=== PATIENT | male | born 1940 | race Caucasian/White ===

== ENCOUNTER 2017-07-28 14:47 | Observation (INO) | payer MEDICARE, BC ==
[2017-07-28] VITALS (9 sets, daily range): BP systolic 120–158; BP diastolic 69–89; PULSE 62–75; RESP 18–22; TEMP 97.6–98.4; O2SAT 91–96
[2017-07-28] MEDS ORDERED: buPROPion HCL 150 MG SUSTAINED RELEASE TAB PO ONE (17:00)
[2017-07-28] MEDS ORDERED: SODIUM BICARBONATE 8.4% INJ 100 MEQ in DEXTROSE 5% IN WATE 1000ML INJ 1,000 ML IV SCH ×2 (20:00)
--- NOTE | 2017-07-28 20:14 | HHI.HP ---
History of Present Illness Chief Complaint: L neck mass, pulsatile; renal insufficiency History of Present Illness 77 y.o., , male~with a chief complaint of bulging left neck mass. This been present for years. In 2006, the patient had a left carotid endarterectomy for what sounds like asymptomatic carotid stenosis. He did well from this and was discharged to home on postoperative day #1. He then had an incident where he fell approximate 5 days later but reportedly was evaluated and found to have no adverse sequelae. He has noted a left neck mass for some time and this neck mass does not seem to grow nor does it give him any compressive symptoms nor symptoms of dysphagia. He denies fevers or chills and has no skin changes of his left neck. He is admitted today for IV hydration in preparation for a CT scan. This was the suggestion of his lead mechanic. The creatinine is pending. The patient has no new neck symptoms since I saw him in clinic. No stroke, TIA/ AF symptoms. Past/Family/Social History Past Medical History AAA (abdominal aortic aneurysm) Chronic cough Chronic kidney disease Depressed Fatigue Hyperlipidemia Hypertension Lung disease SOB (shortness of breath) Past Surgical History back surgery L CEA 2011 Social History + tobacco history Family History NC Coded Allergies: levofloxacin (Verified Allergy, Unknown, 07/28/17) Review of Systems Constitutional: DENIES: Fever, Chills Eyes: DENIES: Vision loss Physical Exam Vitals/I&O Date Time Temp Pulse Resp B/P (MAP) Pulse Ox O2 Delivery O2 Flow Rate FiO2 07/28/17 18:00 66 07/28/17 17:00 64 07/28/17 16:30 62 07/28/17 15:37 97.6 65 18 139/86 (103) 96 Neuro: alert, oriented, no focal deficits HEENT: NC/AT; anicteric sclera Neck: L neck with healed incision and pulsatile nontender mass no skin changes Heart: reg rate Lungs: nonlabored Extremities: TRIANA, no deficits pending pending Caprini VTE Risk Assessment Caprini VTE Risk Assessment: No/Low Risk (score <= 1) Caprini Risk Assessment Model Point Value = 1 Point Value = 2 Point Value = 3 Point Value = 5 Age 41-60 Minor surgery BMI > 25 kg/m2 Swollen legs Varicose veins or History of unexplained or recurrent spontaneous Oral contraceptives or hormone replacement Sepsis (< 1 month) Serious lung disease, including pneumonia (< 1 month) Abnormal pulmonary function Acute myocardial infarction Congestive heart failure (< 1 month) History of inflammatory bowel disease Medical patient at bed rest Age 61-74 Arthroscopic surgery Major open surgery (> 45 min) Laparoscopic surgery (> 45 min) Malignancy Confined to bed (> 72 hours) Immobilizing plaster cast Central venous access Age >= 75 History of VTE Family history of VTE Factor V Leiden Prothrombin [id number] Lupus anticoagulant Anticardiolipin antibodies Elevated serum homocysteine Heparin-induced thrombocytopenia Other congenital or acquired thrombophilia Stroke (< 1 month) Elective arthroplasty Hip, pelvis, or leg fracture Acute spinal cord injury (< 1 month) Prophylaxis Regimen Total Risk Factor Score Risk Level Prophylaxis Regimen 0-1 Low Early ambulation 2 Moderate Order ONE of the following: *Sequential Compression Device (SCD) *Heparin 5000 units SQ BID 3-4 Higher Order ONE of the following medications: *Heparin 5000 units SQ TID *Enoxaparin/Lovenox 40 mg SQ daily (WT < 150 kg, CrCl > 30 mL/min) *Enoxaparin/Lovenox 30 mg SQ daily (WT < 150 kg, CrCl > 10-29 mL/min) *Enoxaparin/Lovenox 30 mg SQ BID (WT < 150 kg, CrCl > 30 mL/min) AND/OR *Sequential Compression Device (SCD) 5 or more Highest Order ONE of the following medications: *Heparin 5000 units SQ TID (Preferred with Epidurals) *Enoxaparin/Lovenox 40 mg SQ daily (WT < 150 kg, CrCl > 30 mL/min) *Enoxaparin/Lovenox 30 mg SQ daily (WT < 150 kg, CrCl > 10-29 mL/min) *Enoxaparin/Lovenox 30 mg SQ BID (WT < 150 kg, CrCl > 30 mL/min) AND *Sequential Compression Device (SCD) Assessment and Plan Plan Potential L carotid pseudoaneurysm, 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 Also has renal insufficiency and is admitted for IV hydration in preparation for CTA neck tomorrow at the request of his lead mechanic Discharge Planning tomorrow after CTA. Toni Siegel MD Jul 28, 2017 20:14
[2017-07-28] MEDS: HEPARIN SODIUM - SQ 10,000 UNITS/ML VIAL SQ SCH (20:46)
[2017-07-28] MEDS ORDERED: ATORVASTATIN 80 MG TAB PO SCH (21:00)
[2017-07-28] MEDS ORDERED: PRAZOSIN HCL 5 MG CAP PO SCH (21:00)
[2017-07-28 21:12] LABS: BICARBONATE 28.6 MEQ/L (21.0-32.0); CALCIUM 8.5 MG/DL (8.5-10.1); CREATININE 1.7 MG/DL (0.60-1.30)
[2017-07-29] VITALS (8 sets, daily range): BP systolic 145–156; BP diastolic 80–97; PULSE 60–76; RESP 20–22; TEMP 98.1–98.4; O2SAT 94
[2017-07-29] MEDS: HEPARIN SODIUM - SQ 10,000 UNITS/ML VIAL SQ SCH (03:25)
[2017-07-29] MEDS ORDERED: IODIXANOL 320 MG/ML 10 ML VIAL (for Rad CT) IVCONTRAST ONE (05:30)
--- NOTE | 2017-07-29 06:03 | RADRPT ---
EXAM DATE/TIME: 07/29/2017 05:28 This report includes an Addendum and supersedes previous reports for this exam. [facility] COMPARISON: No previous studies available for comparison. INDICATIONS : Bulging left neck mass, evaluate for pseudoaneursym. IV CONTRAST: 50 cc Visipaque (iodixanol) IV RADIATION DOSE: 28.03 CTDIvol (mGy) MEDICAL HISTORY : Hypertension. Aneurysm, abdominal. SURGICAL HISTORY : Left carotid endarterectomy. ENCOUNTER: Initial ACUITY: 1 month PAIN SCALE: 0/10 LOCATION: Left neck Elevated flow velocities and ICA/CCA ratios have been found to correlate with increased degrees of vessel stenosis, calculated as percentage of diameter relative to a normal segment of distal ICA/CCA. TECHNIQUE: Volumetric scanning was performed using a multirow detector CT scanner. The data was post processed with a variety of visualization algorithms including full-volume maximum intensity projection, multip lanar sliding thin-slab reformation, curved-planar reformation, and surface-rendering techniques. Us ing automated exposure control and adjustment of the mA and/or kV according to patient size, radiatio n dose was kept as low as reasonably achievable to obtain optimal diagnostic quality images. DICOM f ormat image data is available electronically for review and comparison. 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 There is 3 vessel arch anatomy. Ostium of th e arch vessels are patent. RIGHT CAROTID: Scattered calcified plaque throughout the common carotid artery without significant flow-limiting jhony nosis. The carotid bulb has a normal configuration without ulceration or narrowing. Calcified plaque in the proximal internal carotid artery with resultant approximate 40% stenosis. Internal carotid art danette is otherwise patent to the skull base. The external carotid artery is intact. LEFT CAROTID: The common carotid artery is intact. Postsurgical features of carotid endarterectomy with large assoc iated carotid pseudoaneurysm. This measures 3.8 x 3.0 cm and contains a moderate amount of mural thro mbus. Eccentric mild calcified plaque slightly distal to this region with resultant less than 30% jhony nosis. Internal carotid artery is otherwise patent to the skull base. Excellen carotid artery is ricks nt. a VERTEBRALS: The vertebral arteries have a symmetric diameter. No stenotic lesions are seen. Nonvascular findings: Visualized lung apices demonstrate severe centrilobular emphysema. CONCLUSION: 1. Postsurgical features of left carotid endarterectomy with large associated pseudoaneurysm measurin g 3.8 x 3.0 cm containing moderate amount of mural thrombus. 2. Eccentric calcified plaque slightly more distally to this an aneurysm with resultant less than 30% stenosis. More distally, the left internal carotid artery is patent. 3. Calcified plaque in the proximal right internal carotid artery with resultant approximate 40% sten osis. 4. Severe centrilobular emphysema in the visualized lung apices. Moises Serrano MD on July 29, 2017 at 5:54 Board Certified Radiologist. This report was verified electronically. 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 Further dilation may be performed with dedicated CT A of the chest. Moises Serrano MD on July 29, 2017 at 6:32 Board Certified Radiologist. This report was verified electronically.
--- NOTE | 2017-07-29 08:35 | RADRPT ---
EXAM DATE/TIME: 07/29/2017 07:57 [facility] COMPARISON: No previous studies available for comparison. INDICATIONS : Evaluate for abdominal aortic aneurysm. ORAL CONTRAST: No oral contrast ingested. RADIATION DOSE: 9.78 CTDIvol (mGy) MEDICAL HISTORY : Hypertension. Aneurysm, abdominal. SURGICAL HISTORY : Carotid endarterectomy. ENCOUNTER: Initial ACUITY: 1 day PAIN SCALE: 0/10 LOCATION: Bilateral Abdomen TECHNIQUE: Volumetric scanning of the abdomen and pelvis was performed. Using automated exposure control and ad justment of the mA and/or kV according to patient size, radiation dose was kept as low as reasonably achievable to obtain optimal diagnostic quality images. DICOM format image data is available electro nically for review and comparison. FINDINGS: LIVER: Homogeneous density without lesion. There is no dilation of the biliary tree. No calcified gallston es. SPLEEN: Normal size without lesion. PANCREAS: Within normal limits. KIDNEYS: Large right renal cortical and parapelvic cysts noted. Tiny cysts present involving the left kidney. No evidence of hydronephrosis. ADRENAL GLANDS: Within normal limits. VASCULAR: The aorta at the level of the diaphragmatic hiatus is dilated to a diameter just greater than 5 cm. I s fairly abrupt tapering down to a diameter of just over 3 cm below the level of the visceral artery origins. The aorta is thereafter uniform in diameter with mild ectasia, no masood aneurysm. Severe liz cific disease is present in the common iliacs bilaterally, right worse than left. The external iliacs are notable for patchy eccentric calcification and grossly satisfactory outer wall diameter measurem ents. BOWEL/MESENTERY: Colonic diverticulosis. No abnormal dilatation of bowel. No wall thickening or focal inflammatory lance nges appreciated. ABDOMINAL WALL: Small fat-containing umbilical hernia RETROPERITONEUM: There is no lymphadenopathy. BLADDER: No wall thickening or mass. REPRODUCTIVE: Within normal limits. INGUINAL: There is no lymphadenopathy or hernia. MUSCULOSKELETAL: Within normal limits for patient age. CONCLUSION: The aorta is dilated at the level of the diaphragmatic hiatus slightly greater than 5 cm and then tapers fairly abruptly just below level of the visceral artery origins. Stephen Thao MD on July 29, 2017 at 8:23 Board Certified Radiologist. This report was verified electronically.
[2017-07-29] MEDS ORDERED: LOSARTAN 25 MG TAB PO SCH (09:00)
[2017-07-29] MEDS ORDERED: CALCITRIOL 0.25 MCG CAP PO SCH (09:00)
[2017-07-29] MEDS ORDERED: CYANOCOBALAMIN 1,000 MCG TAB PO SCH (09:00)
[2017-07-29] MEDS ORDERED: DILTIAZEM-CD 180 MG CAP ER PO SCH (09:00)
--- NOTE | 2017-07-29 09:42 | PD.VS.DC ---
Discharge Summary Admission Date: Jul 28, 2017 at 17:07 Discharge Date: Jul 29, 2017 Admission Diagnosis: (1) Pseudoaneurysm of carotid artery Discharge Diagnosis: (1) Pseudoaneurysm of carotid artery ICD Codes: I72.0 - Aneurysm of carotid artery Brief History from admission 77 y.o., , male~with a chief complaint of bulging left neck mass. This been present for years. In 2006, the patient had a left carotid endarterectomy for what sounds like asymptomatic carotid stenosis. He did well from this and was discharged to home on postoperative day #1. He then had an incident where he fell approximate 5 days later but reportedly was evaluated and found to have no adverse sequelae. He has noted a left neck mass for some time and this neck mass does not seem to grow nor does it give him any compressive symptoms nor symptoms of dysphagia. He denies fevers or chills and has no skin changes of his left neck. He is admitted today for IV hydration in preparation for a CT scan. This was the suggestion of his district court judge. The creatinine is pending. The patient has no new neck symptoms since I saw him in clinic. No stroke, TIA/ AF symptoms. Procedure(s): NONE Significant Findings Pt alert, oriented, no focal deficits Neck: L neck with healed incision and pulsatile nontender mass no skin changes Test 07/28/17 20:18 Blood Urea Nitrogen 28 MG/DL (7-18) Creatinine 1.70 MG/DL (0.60-1.30) Random Glucose 113 MG/DL (74-106) Estimat Glomerular Filtration Rate 39 ML/MIN (>89) Hospital Course: 77 y.o., , male with a chief complaint of bulging left neck mass that has been present for years. In 2006, the patient had a left carotid endarterectomy for what sounds like asymptomatic carotid stenosis. He did well from this and was discharged to home on postoperative day #1. He then had an incident where he fell approximate 5 days later but reportedly was evaluated and found to have no adverse sequelae. He has noted a left neck mass for some time and this neck mass does not seem to grow nor does it give him any compressive symptoms nor symptoms of dysphagia. He denies fevers or chills and has no skin changes of his left neck. Pt admitted yesterday for IV hydration in preparation for a CT scan. This was the suggestion of his district court judge. Labs reviewed/ CT obtained Pt medically cleared for D/C today Pt scheduled for a L Carotid artery replacement on 08/04/17 w/ Dr. Siegel Allergies Coded Allergies Type Severity Reaction Last Updated Verified levofloxacin Allergy Unknown 07/28/17 Yes Recent Impressions Abdomen/Pelvis CT 07/29/17 0700 Signed Impressions: Service Date/Time: Saturday, July 29, 2017 07:57 - CONCLUSION: The aorta is dilated at the level of the diaphragmatic hiatus slightly greater than 5 cm and then tapers fairly abruptly just below level of the visceral artery origins. Stephen Thao MD Neck CTA 07/29/17 0000 Signed Impressions: Service Date/Time: Saturday, July 29, 2017 05:28 - CONCLUSION: 1. Postsurgical features of left carotid endarterectomy with large associated pseudoaneurysm measuring 3.8 x 3.0 cm containing moderate amount of mural thrombus. 2. Eccentric calcified plaque slightly more distally to this an aneurysm with resultant less than 30%% stenosis. More distally, the left internal carotid artery is patent. 3. Calcified plaque in the proximal right internal carotid artery with resultant approximate 40%% stenosis. 4. Severe centrilobular emphysema in the visualized lung apices. 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 Further dilation may be performed with dedicated CTA of the chest. Moises Serrano MD 07/27/17 07/27/17 07/28/17 07/28/17 07/29/17 07/29/17 06:00 18:00 06:00 18:00 06:00 18:00 Intake Total 480 ml Output Total 225 ml Balance 255 ml Intake Oral 480 ml Output Urine Total 225 ml Laboratory Tests Test 07/28/17 20:18 Blood Urea Nitrogen 28 MG/DL Creatinine 1.70 MG/DL Random Glucose 113 MG/DL Calcium Level 8.5 MG/DL Sodium Level 139 MEQ/L Potassium Level 3.8 MEQ/L Chloride Level 103 MEQ/L Carbon Dioxide Level 28.6 MEQ/L Anion Gap 7 MEQ/L Estimat Glomerular Filtration Rate 39 ML/MIN Orders Procedure Category Date Status Time Place In Observation ADMITTING 07/28/17 Transmitted Code Status CODE 07/28/17 Transmitted 17:00 Vital Signs (Adult) AMY 07/28/17 In Process 17:00 Activity Oob Ad [place] AMY 07/28/17 In Process 17:00 Notify Parameters AMY 07/28/17 In Process 17:00 Diet Heart Healthy DIET 07/28/17 Transmitted Dinner Basic Metabolic Panel LAB 07/28/17 Complete (Bmp) 17:00 Heparin Inj (Heparin MED 07/28/17 In Process Inj) 20:00 Scd Bilateral/Knee AMY 07/28/17 In Process High 17:00 Dextrose 5% In MED 07/28/17 In Process Wate... W/Sodium 20:00 ^ Other Nursing Orders AMY 07/28/17 In Process 17:00 Prazosin (Minipress) MED 07/28/17 In Process 21:00 Losartan (Cozaar) MED 07/29/17 In Process 09:00 Atorvastatin (Lipitor) MED 07/28/17 In Process 21:00 Calcitriol (Rocaltrol) MED 07/29/17 In Process 09:00 Cyanocobalamin MED 07/29/17 In Process (Vitamin B12) 09:00 Bupropion Sr MED 07/28/17 Complete (Wellbutrin Sr) 17:00 Diltiazem Cd MED 07/29/17 In Process (Cardizem Cd) 09:00 Cta Neck W Iv RADCT 07/29/17 Resulted Contrast W 3d Iodixanol 320 Inj MED 07/29/17 Complete (Rad Ct) (Visipaque 32 05:30 Ct Thorax/ Chest Wo RADCT 07/29/17 Taken Iv Contras 07:00 Ct Abd/Pel W/O Iv RADCT 07/29/17 Resulted Contrast 07:00 Attending Discharge DISCHARGE 07/29/17 Transmitted Order Vital Signs Date Time Temp Pulse Resp B/P (MAP) Pulse Ox O2 Delivery O2 Flow Rate FiO2 07/29/17 06:00 62 07/29/17 05:00 62 07/29/17 04:00 60 07/29/17 03:00 64 07/29/17 03:00 98.1 73 22 145/80 (101) 94 07/29/17 02:00 64 07/29/17 01:00 68 07/29/17 00:00 76 07/28/17 23:00 98.2 75 22 120/69 (86) 91 07/28/17 23:00 68 07/28/17 22:00 66 07/28/17 21:00 68 07/28/17 20:00 72 07/28/17 19:00 71 07/28/17 19:00 98.4 69 22 158/89 (112) 93 07/28/17 18:00 66 07/28/17 17:00 64 07/28/17 16:30 62 07/28/17 15:37 97.6 65 18 139/86 (103) 96 Discharge Condition: Good Discharge Disposition: Discharge Home Discharge Instructions: Activities as tolerated Maintain a heart healthy diet You are scheduled for a LEFT carotid artery replacement on 08/04/17 w/ Dr. Siegel On 08/03/17 you may eat a regular diet until midnight- AFTER midnight nothing by mouth in preparation for your surgical intervention Our office will call you with further instructions Call the office with any questions or concerns in the interim Ana Bates NP [facility] [phone] Any questions or concerns: Call [facility] Heart [facility] V[facility] Surgery at [facility] [phone] Ana Bates Jul 29, 2017 09:42
--- NOTE | 2017-07-29 10:12 | PD.VS.PN ---
Subjective Subjective/Hospital Course No events overnight. CTA done and then NC CT C/A/P because of TAA seen on CTA neck. no chest pain/back pain. No neuro events. Objective Vitals/I&O Date Time Temp Pulse Resp B/P (MAP) Pulse Ox O2 Delivery O2 Flow Rate FiO2 07/29/17 06:00 62 07/29/17 05:00 62 07/29/17 04:00 60 07/29/17 03:00 64 07/29/17 03:00 98.1 73 22 145/80 (101) 94 07/29/17 02:00 64 07/29/17 01:00 68 07/29/17 00:00 76 07/28/17 23:00 98.2 75 22 120/69 (86) 91 07/28/17 23:00 68 07/28/17 22:00 66 07/28/17 21:00 68 07/28/17 20:00 72 07/28/17 19:00 71 07/28/17 19:00 98.4 69 22 158/89 (112) 93 07/28/17 18:00 66 07/28/17 17:00 64 07/28/17 16:30 62 07/28/17 15:37 97.6 65 18 139/86 (103) 96 07/29/17 07/29/17 07/29/17 06:59 14:59 22:59 Intake Total 480 ml Output Total 225 ml Balance 255 ml Physical Exam Neuro intact L neck stable, well healed. Palpable and non tender Laboratory Laboratory Tests Test 07/28/17 20:18 Blood Urea Nitrogen 28 Creatinine 1.70 Random Glucose 113 Calcium Level 8.5 Sodium Level 139 Potassium Level 3.8 Chloride Level 103 Carbon Dioxide Level 28.6 Anion Gap 7 Estimat Glomerular Filtration Rate 39 Imaging Last 48 hours Impressions Abdomen/Pelvis CT 07/29/17 0700 Signed Impressions: Service Date/Time: Saturday, July 29, 2017 07:57 - CONCLUSION: The aorta is dilated at the level of the diaphragmatic hiatus slightly greater than 5 cm and then tapers fairly abruptly just below level of the visceral artery origins. Stephen Thao MD Neck CTA 07/29/17 0000 Signed Impressions: Service Date/Time: Saturday, July 29, 2017 05:28 - CONCLUSION: 1. Postsurgical features of left carotid endarterectomy with large associated pseudoaneurysm measuring 3.8 x 3.0 cm containing moderate amount of mural thrombus. 2. Eccentric calcified plaque slightly more distally to this an aneurysm with resultant less than 30%% stenosis. More distally, the left internal carotid artery is patent. 3. Calcified plaque in the proximal right internal carotid artery with resultant approximate 40%% stenosis. 4. Severe centrilobular emphysema in the visualized lung apices. 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 Further dilation may be performed with dedicated CTA of the chest. Moises Serrano MD Assessment and Plan Assessment: (1) Pseudoaneurysm of carotid artery Plan LEFT carotid pseudoaneurysm. discussed operative repair with patient and his . Will schedule elective repair for next week. D/C today. Discharge Planning today Toni Siegel MD Jul 29, 2017 10:12
--- NOTE | 2017-07-29 10:30 | RADRPT ---
EXAM DATE/TIME: 07/29/2017 07:57 [facility] COMPARISON: No previous studies available for comparison. INDICATIONS : Evaluate for abdominal aortic aneurysm. RADIATION DOSE: 9.78 CTDIvol (mGy) MEDICAL HISTORY : Aneurysm, abdominal. Hypertension. SURGICAL HISTORY : Carotid endarterectomy. ENCOUNTER: Initial ACUITY: 1 day PAIN SCALE: 0/10 LOCATION: chest TECHNIQUE: Volumetric scanning of the chest was performed. Using automated exposure control and adjustment of t he mA and/or kV according to patient size, radiation dose was kept as low as reasonably achievable to obtain optimal diagnostic quality images. DICOM format image data is available electronically for r eview and comparison. Follow-up recommendations for detected pulmonary nodules are based at a minimum on nodule size and pa tient risk factors according to Fleischner Society Guidelines. FINDINGS: LUNGS: There is mild pleuroparenchymal scarring and/or atelectasis in the posterior lung bases, more promine nt on the left than the right. There is moderate emphysema. No evidence of lobar consolidation. No woodward spicious masses. PLEURAE: There is no pleural thickening or pleural effusion. MEDIASTINUM: No evidence of mediastinal mass or lymphadenopathy. Extensive atherosclerotic changes with dense chris nary calcification present. The thoracic aorta is abnormal in appearance with eccentric dilatation be ginning in the distal arch region and continuing into the descending thoracic aorta. At the level of the distal arch, the diameter is slightly greater than 5 cm. Saccular outpouching asymmetric to the l eft has the appearance of a dissecting aneurysm with separation of the outer margin of the adventitia from linear calcification indicating the site of the intima by greater than 2 cm. Classical three-ve ssel arch anatomy is identified. The ascending thoracic aorta is normal in caliber. AXILLAE: Within normal limits. No lymphadenopathy. MUSCULOSKELETAL: Within normal limits for patient age. 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 Areas of mild fus iform dilatation in the descending thoracic aorta. Stephen Thao MD on July 29, 2017 at 10:01 Board Certified Radiologist. This report was verified electronically.
[2017-08-03] MEDS ORDERED: OXYGENDME NAS.CANULA (14:47)
[2017-08-03] MEDS ORDERED: MULT10CA PO (14:47)
[2017-08-03] MEDS ORDERED: TIOT1AER INH (14:47)
[2017-08-03] MEDS ORDERED: ATOR80TA45 PO (14:47)
[2017-08-03] MEDS ORDERED: VITA10004 PO (14:47)
[2017-08-03] MEDS ORDERED: LOSA25TA PO (14:47)
[2017-08-03] MEDS ORDERED: VENL150T PO (14:47)
[2017-08-03] MEDS ORDERED: DILT360C12 PO (14:47)
[2017-08-03] MEDS ORDERED: BUPR100T4 PO (14:47)
[2017-08-03] MEDS ORDERED: PRAZ5CAP PO (14:47)
[2017-08-03] MEDS ORDERED: CALC0.25 PO (14:47)
== END 2017-07-29 11:05 | disposition home or self-care (01) ==
LOC: PHBDO 14:47 → HCIS 14:50 → PHBDO 17:06 → HCIS 17:07
PROVIDERS: ADMIT Surgery; ATTEND Surgery
DX: I72.0 Aneurysm of carotid artery (principal); I12.9 Hypertensive chronic kidney disease with stage 1 through stage 4 chronic kidney disease, or unspecified chronic kidney disease; N18.9 Chronic kidney disease, unspecified; E78.5 Hyperlipidemia, unspecified
CPT/HCPCS: 70498; 71250; 74176; 80048; 96372; 96374; G0378; J1644; J7070; Q9967

== ENCOUNTER 2017-08-04 05:47 | Inpatient (IN) | payer MEDICARE, BC ==
[~2017-08-04] VITALS: Ht 172.7 cm; Wt 71.0 kg
[2017-08-04] VITALS (9 sets, daily range): BP systolic 161–163; BP diastolic 86–88; PULSE 73–82; RESP 16; TEMP 98–98.2; O2SAT 92–98
[~2017-08-04 05:47] MED LIST: ATOR80TA45 PO; BUPR100T4 PO; CALC0.25 PO; DILT360C12 PO; LOSA25TA PO; MULT10CA PO; OXYGENDME NAS.CANULA; PRAZ5CAP PO; TIOT1AER INH; VENL150T PO; VITA10004 PO
[2017-08-04] MEDS ORDERED: LACTATED RINGER'S 1000 ML IV PRN (06:30)
[2017-08-04] MEDS ORDERED: METOPROLOL TARTRATE 25 MG TAB PO PRN (06:30)
[2017-08-04] MEDS ORDERED: POVIDONE IODINE 5% (ANTISEPSIS KIT) 4 APPLICATIONS EACH NARE PRN (06:30)
[2017-08-04] MEDS ORDERED: SODIUM CHLORID 0.9% 500 ML IV PRN (06:30)
[2017-08-04] MEDS ORDERED: CHLORHEXIDINE GLUCONATE 2 % 1 PACK (2 CLOTHS) TOPICAL PRN (06:30)
--- NOTE | 2017-08-04 06:55 | PD.VS.PN ---
Pre-operative Note Pre-operative diagnosis: LEFT carotid pseudoaneurysm Planned procedure: LEFT carotid bypass/replacement Interval History: Pt has been feeling well since I saw him last week. No new neuro events and no F/C. Ready for surgery Labs: Cr 1.7 Laboratory Results Test 08/04/17 06:40 Blood: T&S Imaging: CTA reviewed Orders: NPO Ancef 2g IV OCTOR Post-operative destination: [facility] Operative site marked: Yes Consent: Informed consent has been obtained from Gael Zendejas. I have explained the procedure in detail and discussed the risks, benefits, and potential complications. All questions have been answered. Patient contact information: (April) [phone] Toni Siegel MD Aug 04, 2017 06:55
[2017-08-04 07:00] LABS: AUTOMATED NEUTROPHIL # 6.5 TH/MM3 (1.8-7.7); BASOPHIL # 0.1 TH/MM3 (0-0.2); BASOPHIL % 0.9 % (0.0-2.0); EOSINOPHIL # 0.5 TH/MM3 (0-0.4); EOSINOPHIL % 6.1 % (0.0-4.0); HEMOGLOBIN 10.9 GM/DL (13.0-17.0); LYMPH % 9.9 % (9.0-44.0); LYMPHOCYTE # 0.9 TH/MM3 (1.0-4.8); MEAN CORPUSCULAR HEMOGLOBIN 30.5 PG (27.0-34.0); MEAN CORPUSCULAR HGB CONC 33.1 % (32.0-36.0); MEAN PLATELET VOLUME 8.9 FL (7.0-11.0); MONO % 8.3 % (0.0-8.0); MONOCYTE # 0.7 TH/MM3 (0-0.9); NEUT % 74.8 % (16.0-70.0); PLATELET COUNT 207 TH/MM3 (150-450); RED BLOOD COUNT 3.59 MIL/MM3 (4.50-5.90); WHITE BLOOD COUNT 8.7 TH/MM3 (4.0-11.0)
[2017-08-04 07:02] LABS: INTERNATIONAL NORMALIZED RATIO 1.1 RATIO; PROTHROMBIN TIME - PATIENT 11.1 SEC (9.8-11.6)
[2017-08-04 07:26] LABS: BICARBONATE 28.6 MEQ/L (21.0-32.0); CALCIUM 8.1 MG/DL (8.5-10.1); CREATININE 1.82 MG/DL (0.60-1.30)
[2017-08-04] MEDS ORDERED: HEPARIN-NS/PF INJ 500 ML ONE (07:34)
[2017-08-04] MEDS ORDERED: HEPARIN SODIUM - IV 10,000 UNITS/10 ML VIAL ONE (07:34)
[2017-08-04] MEDS ORDERED: THROMBIN (TOPICAL) 20,000 UNIT SPRAY KIT ONE ×2 (07:35→10:41)
[2017-08-04] MEDS ORDERED: BUPIVACAINE HCL PF 0.5% 10 ML VIAL ONE (07:36)
[2017-08-04] MEDS ORDERED: PROTAMINE SULFATE 50 MG/5 ML VIAL ONE (07:36)
[2017-08-04] MEDS ORDERED: FAMOTIDINE 20 MG/2 ML VIAL ONE (07:40)
[2017-08-04] MEDS ORDERED: ACETAMINOPHEN 1000 MG/100 ML 100 ML IV ONE (07:40)
[2017-08-04] MEDS ORDERED: ceFAZolin INJ 1,000 MG VIAL IV ONE ×2 (08:30→12:00)
[2017-08-04] MEDS: D5-1/2 NS + KCL 20 MEQ INJ 1,000 ML IV SCH (11:26)
--- NOTE | 2017-08-04 11:26 | HHI.PR ---
cc: Toni Siegel MD Immediate Post Op Note Procedure Date: Aug 04, 2017 Pre Op Diagnosis: L carotid pseudoaneurysm Post Op Diagnosis: L carotid pseudoaneurysm Surgeon: Toni Siegel Photography Colorist(s): Stephen Espinal Procedure: L carotid aneurysm repair (CCA to ICA bypass with 8mm PTFE) Findings: degenerated carotid intraop EEG changes, resolved with reperfusion Additional Information: awoke TRIANA x 4 Complications: none apparent Specimen(s) removed: none for pathology Estimated blood loss: 350 Anesthesia: General Drains: None Fluids: 3200 mL IVF Urinary Output (mLs): 140 Patient to: [facility] Patient Condition: Good Implant/Devices: SEE IMPLANT LOG (if applicable) Date/Time of Procedure: SEE SURGICAL CARE RECORD Toni Siegel MD Aug 04, 2017 11:26
[2017-08-04] MEDS ORDERED: SENNOSIDES 8.6 MG TAB PO PRN (11:30)
[2017-08-04] MEDS ORDERED: LACTULOSE SYRUP 20 GM/30 ML CUP PO PRN (11:30)
[2017-08-04] MEDS ORDERED: MAGNESIUM HYDROXIDE SUSP 30 ML CUP PO PRN (11:30)
[2017-08-04] MEDS ORDERED: BISACODYL 10 MG SUPP RECTAL PRN (11:30)
[2017-08-04] MEDS ORDERED: RESP: ALBUTEROL 2.5 MG/3 ML NEB (PRN) ONE (11:55)
[2017-08-04] MEDS ORDERED: NEOSTIGMINE 5 MG/5 ML SYRINGE IV PUSH ONE (12:00)
[2017-08-04] MEDS ORDERED: ONDANSETRON HCL 4 MG/2 ML VIAL IV PUSH ONE (12:00)
[2017-08-04] MEDS ORDERED: PHENYLEPHRINE HCL 10 MG/ML VIAL IV ONE (12:00)
[2017-08-04] MEDS ORDERED: SODIUM CHLORID 0.9% 500 ML INJ 500 ML IV ONE (12:00)
[2017-08-04] MEDS ORDERED: ePHEDrine/NS 25 MG/5 ML SYRINGE IV ONE (12:00)
[2017-08-04] MEDS ORDERED: GLYCOPYRROLATE 1 MG/5 ML SYRINGE IV PUSH ONE (12:00)
[2017-08-04] MEDS ORDERED: SODIUM CHLORIDE 0.9% 20 ML VIAL IV ONE (12:00)
[2017-08-04] MEDS ORDERED: NORMOSOL R INJ 2,000 ML IV ONE (12:00)
[2017-08-04] MEDS ORDERED: PROPOFOL 200 MG/20 ML AMP IV ONE (12:00)
[2017-08-04] MEDS ORDERED: LIDOCAINE HCL 1% PF 5 ML SYRINGE OTHER ONE (12:00)
[2017-08-04] MEDS ORDERED: LACTATED RINGER'S 1000 ML INJ 1,000 ML IV ONE (12:00)
[2017-08-04] MEDS ORDERED: ROCURONIUM INJ 50 MG/5 ML SYRINGE IV PUSH ONE (12:00)
[2017-08-04] MEDS ORDERED: PHENYLEPHRINE HCL 10 MG/ML VIAL ONE (13:17)
[2017-08-04] MEDS ORDERED: TERBUTALINE INJ 1 MG/ML AMP SQ PRN (13:45)
[2017-08-04] MEDS ORDERED: PHENYLEPHRINE 40 MG in D5W 500 ML IV PRN (13:45)
[2017-08-04] MEDS ORDERED: SODIUM CHLOR 0.9% 250 ML INJ 250 ML IV ONE (15:15)
--- NOTE | 2017-08-04 15:20 | PD.CONS ---
[facility] Service Critical Care Medicine Consult Requested By Dr. Valente Reason for Consult s/p left carotid pseudoaneurysm repair Hypotension Chronic kidney disease Primary Care Physician Gael Gaona M.D. History of Present Illness Patient is a 77-year-old male with past medical history significant for COPD, dyslipidemia, anxiety depression, continued tobacco abuse, status post left carotid endarterectomy in 2011. Patient was admitted to Dr. Valente and underwent left carotid pseudoaneurysm repair today. (L carotid aneurysm repair, CCA to ICA bypass with 8mm PTFE graft). EBL 350 ml. received 3200 ML of crystalloids. Postoperatively he was moved to the CVICU where I met him. He appears to be in no distress versus slight left facial droop which I discussed with Dr. Valente. According to him it is more likely secondary to cranial nerve injury rather than CVA. Continue neuro checks. Target systolic blood pressure 140-190, Heath-Synephrine had been added to maintain the started blood pressure. I have also added 250 ML bolus and will continue maintenance fluids at 63 ML per hour. Also noted on the CT angiogram of the chest 07/29/17 is a distal aortic arch dissection, which is chronic per Dr. 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 CTA 07/29/17 Reported Medications Oxygen by nasal cannula tiotropium bromide and olodaterol Inhaler Prazosin 5 mg daily Diltiazem CD 360 mg daily Losartan 25 mg daily Wellbutrin 100 mg daily Venlafaxine ER 150 mg daily Vitamin B12 Calcitriol Multivitamin Active Ordered Medications Reviewed Family History Noncontributory Social History Smokes 1 pack of cigarettes daily Physical Exam Vital Signs Vital Signs Date Time Temp Pulse Resp B/P (MAP) Pulse Ox O2 Delivery O2 Flow Rate FiO2 08/04/17 11:57 93 Simple Mask 10.00 08/04/17 06:38 97.8 76 18 135/79 (97) 93 Physical Exam GENERAL: 77-year-old male, lying in bed in no distress SKIN: Warm and dry. No rash HEAD: Atraumatic. Normocephalic. Very mild left facial droop EYES: Pupils equal and round about 3 mm bilaterally ENT: No nasal bleeding or discharge. NECK: Trachea midline. Left carotid endarterectomy incision C/D/I CARDIOVASCULAR: Regular rate and rhythm. S1, S2. Systolic murmur heard predominantly in aortic area RESPIRATORY: Breath sounds equal bilaterally. No wheezes GASTROINTESTINAL: Abdomen is soft. nondistended. MUSCULOSKELETAL: No obvious deformities. NEUROLOGICAL: Awake and alert. Moves all 4 extremity spontaneously. No focal deficits except for mild facial droop. Muscle strength equal bilaterally Laboratory Laboratory Tests Test 08/04/17 06:40 White Blood Count 8.7 Red Blood Count 3.59 Hemoglobin 10.9 Hematocrit 33.0 Mean Corpuscular Volume 92.0 Mean Corpuscular Hemoglobin 30.5 Mean Corpuscular Hemoglobin Concent 33.1 Red Cell Distribution Width 17.0 Platelet Count 207 Mean Platelet Volume 8.9 Neutrophils (%) (Auto) 74.8 Lymphocytes (%) (Auto) 9.9 Monocytes (%) (Auto) 8.3 Eosinophils (%) (Auto) 6.1 Basophils (%) (Auto) 0.9 Neutrophils # (Auto) 6.5 Lymphocytes # (Auto) 0.9 Monocytes # (Auto) 0.7 Eosinophils # (Auto) 0.5 Basophils # (Auto) 0.1 CBC Comment DIFF FINAL Differential Comment Prothrombin Time 11.1 Prothromb Time International Ratio 1.1 Blood Urea Nitrogen 33 Creatinine 1.82 Random Glucose 91 Calcium Level 8.1 Sodium Level 139 Potassium Level 3.8 Chloride Level 106 Carbon Dioxide Level 28.6 Anion Gap 4 Estimat Glomerular Filtration Rate 36 Result Diagram: 08/04/17 0640 08/04/17 0640 Imaging CTA chest 07/29 reported Dissecting aneurysm in the distal arch with diameter of slightly greater than 5 cm. Areas of mild fusiform dilatation in the descending thoracic aorta. 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 Neuro checks every hour - Mild facial droop most likely secondary to intraop cranial nerve damage - Continue venlafaxine and bupropion RESP: - Nasal cannula oxygen - DuoNeb every 6 hours scheduled and when necessary - Continue tiotropium bromide and olodaterol Inhaler CV: - Status post left carotid pseudoaneurysm repaired. Postop management per Dr. Valente - Target systolic blood pressure 140-160, use Heath-Synephrine ifl needed - Hold antihypertensives including Cardizem and Losartan - 250 ml normal saline bolus given. 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 Valente - Need outpatient 2-D echo to evaluate aortic valve GI: - Diet when cleared by Dr. Valente - Famotidine for GI prophylaxis : - Monitor renal function closely. Zee catheter. - Making adequate urine, monitor creatinine ID: - Perioperative antibiotics per Dr. Valente HEME: - Monitor CBC, CMP ENDO: - Replace electrolytes per protocol PROPH: - Bilateral lower extremity SCDs. Start Lovenox 08/05/17. Famotidine for GI prophylaxis LINES: - Utilize peripheral IVs, central line if needed CC time 35 min Code Status Full Discussed Condition With Shari Zuluaga MD Aug 04, 2017 15:20
[2017-08-04] MEDS ORDERED: RESP: ALBUTEROL 2.5 MG/IPRATROPIUM 0.5 MG NEB (PRN) NEB (15:45)
[2017-08-04 17:02] LABS: AUTOMATED NEUTROPHIL # 8.4 TH/MM3 (1.8-7.7); BASOPHIL % 0.3 % (0.0-2.0); EOSINOPHIL # 0.1 TH/MM3 (0-0.4); EOSINOPHIL % 0.9 % (0.0-4.0); HEMATOCRIT 26.6 % (39.0-51.0); LYMPH % 6.8 % (9.0-44.0); LYMPHOCYTE # 0.7 TH/MM3 (1.0-4.8); MEAN CELL VOLUME 92.7 FL (80.0-100.0); MEAN CORPUSCULAR HEMOGLOBIN 31.3 PG (27.0-34.0); MEAN CORPUSCULAR HGB CONC 33.8 % (32.0-36.0); MEAN PLATELET VOLUME 9.2 FL (7.0-11.0); MONO % 7.1 % (0.0-8.0); MONOCYTE # 0.7 TH/MM3 (0-0.9); NEUT % 84.9 % (16.0-70.0); PLATELET COUNT 171 TH/MM3 (150-450); RED BLOOD COUNT 2.87 MIL/MM3 (4.50-5.90); RED CELL DISTRIBUTION WIDTH 17.1 % (11.6-17.2); WHITE BLOOD COUNT 9.9 TH/MM3 (4.0-11.0)
[2017-08-04] MEDS: MORPHINE SULFATE 4 MG/ML INJ IV PUSH PRN (18:03)
[2017-08-04] MEDS ORDERED: PHENOL 1.4% SOLN 180 ML BTL OROPHARYNG PRN (18:15)
[2017-08-04] MEDS ORDERED: PHENOL 1.4% SOLN 180 ML BTL PO PRN (18:15)
[2017-08-04] MEDS: ATORVASTATIN 80 MG TAB PO SCH (20:34)
[2017-08-04] MEDS: FAMOTIDINE 20 MG TAB PO SCH (20:35)
[2017-08-04] MEDS: PRAZOSIN HCL 5 MG CAP PO SCH (20:35)
[2017-08-04] MEDS: DOCUSATE SODIUM 50 MG/SENNA 8.6 MG TAB PO SCH (20:35)
[2017-08-04] MEDS: MULTIVITAMIN-OPHTHALMIC 1 TAB PO SCH (20:36)
[2017-08-04] MEDS: RESP: ALBUTEROL 2.5 MG/IPRATROPIUM 0.5 MG NEB (SCH) NEB (20:36)
[2017-08-04] MEDS: HYDROmorphone HCL 2 MG TAB PO PRN (20:36)
[2017-08-04] MEDS ORDERED: ATORVASTATIN 40 MG TAB PO SCH (21:00)
--- NOTE | 2017-08-04 23:25 | EKG ---
Date Performed: 08/04/2017 Time Performed: 06:43:18 PTAGE: 77 years EKG: Sinus rhythm WITH FIRST DEGREE AV BLOCK ABNORMAL ECG NO PREVIOUS TRACING DOCTOR: Charlie Galeas Interpretating Date/Time 08/04/2017 23:25:13
[2017-08-05] VITALS (12 sets, daily range): BP systolic 134–171; BP diastolic 50–84; PULSE 16–87; RESP 15–20; TEMP 97.6–98.6; O2SAT 93–99
[2017-08-05] MEDS: LABETALOL HCL 100 MG/20 ML VIAL IV PRN ×3 (01:41→20:10)
[2017-08-05] MEDS: D5-1/2 NS + KCL 20 MEQ INJ 1,000 ML IV SCH ×2 (03:19→19:15)
[2017-08-05 05:01] LABS: AUTOMATED NEUTROPHIL # 7.6 TH/MM3 (1.8-7.7); BASOPHIL % 0.4 % (0.0-2.0); EOSINOPHIL # 0.3 TH/MM3 (0-0.4); EOSINOPHIL % 3.2 % (0.0-4.0); HEMATOCRIT 27.9 % (39.0-51.0); HEMOGLOBIN 9.2 GM/DL (13.0-17.0); LYMPH % 5.7 % (9.0-44.0); LYMPHOCYTE # 0.5 TH/MM3 (1.0-4.8); MEAN CELL VOLUME 92.7 FL (80.0-100.0); MEAN CORPUSCULAR HEMOGLOBIN 30.6 PG (27.0-34.0); MEAN CORPUSCULAR HGB CONC 33.1 % (32.0-36.0); MEAN PLATELET VOLUME 9.2 FL (7.0-11.0); MONO % 9.6 % (0.0-8.0); MONOCYTE # 0.9 TH/MM3 (0-0.9); NEUT % 81.1 % (16.0-70.0); PLATELET COUNT 188 TH/MM3 (150-450); RED BLOOD COUNT 3.01 MIL/MM3 (4.50-5.90); WHITE BLOOD COUNT 9.4 TH/MM3 (4.0-11.0)
[2017-08-05 05:51] LABS: ALBUMIN 2.8 GM/DL (3.4-5.0); CALCIUM 7.3 MG/DL (8.5-10.1); CALCIUM-PROTEIN CORRECTED 7.7 MG/DL (8.5-10.1); CREATININE 1.36 MG/DL (0.60-1.30); TOTAL BILIRUBIN ADULT 0.2 MG/DL (0.2-1.0); TOTAL PROTEIN 6.3 GM/DL (6.4-8.2)
[2017-08-05] MEDS: RESP: ALBUTEROL 2.5 MG/IPRATROPIUM 0.5 MG NEB (SCH) NEB ×3 (07:25→19:36)
--- NOTE | 2017-08-05 07:56 | PD.VS.PN ---
Subjective POD #: 1 Procedure(s): L carotid replacement Subjective/Hospital Course Mild headache and pain but no focal neuro deficit sleepy this morning Objective Vitals/I&O Date Time Temp Pulse Resp B/P (MAP) Pulse Ox O2 Delivery O2 Flow Rate FiO2 08/05/17 07:26 97 Nasal Cannula 3.00 08/05/17 07:00 67 08/05/17 07:00 97.6 16 16 153/80 (104) 99 134/50 (78) 08/05/17 03:00 97.9 68 15 153/84 (107) 98 158/57 (90) 08/05/17 03:00 70 08/05/17 00:04 98 Simple Mask 6.00 08/04/17 23:00 80 08/04/17 23:00 98.2 81 16 163/88 (113) 98 08/04/17 21:37 18 08/04/17 20:41 92 Nasal Cannula 6.00 08/04/17 19:00 98.0 73 16 161/86 (111) 95 08/04/17 19:00 75 08/04/17 19:00 75 08/04/17 17:00 78 08/04/17 16:00 74 08/04/17 15:00 78 08/04/17 14:00 80 08/04/17 13:00 82 08/04/17 11:57 93 Simple Mask 10.00 08/05/17 08/05/17 08/05/17 07:00 15:00 23:00 Intake Total 1000 ml Output Total 1145 ml Balance -145 ml Exam: L neck incision ok no hematoma TRIANA and no focal neuro deficits CN intact Laboratory Laboratory Tests Test 08/04/17 15:29 08/05/17 04:25 White Blood Count 9.9 9.4 Red Blood Count 2.87 3.01 Hemoglobin 9.0 9.2 Hematocrit 26.6 27.9 Mean Corpuscular Volume 92.7 92.7 Mean Corpuscular Hemoglobin 31.3 30.6 Mean Corpuscular Hemoglobin Concent 33.8 33.1 Red Cell Distribution Width 17.1 17.0 Platelet Count 171 188 Mean Platelet Volume 9.2 9.2 Neutrophils (%) (Auto) 84.9 81.1 Lymphocytes (%) (Auto) 6.8 5.7 Monocytes (%) (Auto) 7.1 9.6 Eosinophils (%) (Auto) 0.9 3.2 Basophils (%) (Auto) 0.3 0.4 Neutrophils # (Auto) 8.4 7.6 Lymphocytes # (Auto) 0.7 0.5 Monocytes # (Auto) 0.7 0.9 Eosinophils # (Auto) 0.1 0.3 Basophils # (Auto) 0.0 0.0 CBC Comment DIFF FINAL DIFF FINAL Differential Comment Blood Urea Nitrogen 19 Creatinine 1.36 Random Glucose 114 Total Protein 6.3 Albumin 2.8 Calcium Level 7.3 Alkaline Phosphatase 94 Aspartate Amino Transf (AST/SGOT) 13 Alanine Aminotransferase (ALT/SGPT) 12 Total Bilirubin 0.2 Sodium Level 138 Potassium Level 4.4 Chloride Level 105 Carbon Dioxide Level 28.0 Anion Gap 5 Estimat Glomerular Filtration Rate 51 Protein Corrected Calcium 7.7 Assessment and Plan Plan POD#1 s/p L carotid replacement 1. Normalize 2. OOB TC 3. D/C a-line and Zee 4. Continue SBP goal 140-160 5. potentially out of CVICU later today Toni Siegel MD Aug 05, 2017 07:56
[2017-08-05] MEDS: VENLAFAXINE HCL XR 75 MG CAP PO SCH (08:58)
[2017-08-05] MEDS: ASPIRIN 325 MG TAB PO SCH (08:58)
[2017-08-05] MEDS: FAMOTIDINE 20 MG TAB PO SCH ×2 (08:58→20:18)
[2017-08-05] MEDS: CYANOCOBALAMIN 1,000 MCG TAB PO SCH (08:59)
[2017-08-05] MEDS: DOCUSATE SODIUM 50 MG/SENNA 8.6 MG TAB PO SCH ×2 (08:59→20:18)
[2017-08-05] MEDS: buPROPion HCL 100 MG TAB PO SCH (08:59)
[2017-08-05] MEDS: MULTIVITAMIN-OPHTHALMIC 1 TAB PO SCH ×2 (08:59→20:18)
[2017-08-05] MEDS ORDERED: TIOTROPIUM OLODATEROL INH SCH (09:00)
[2017-08-05] MEDS: CALCITRIOL 0.25 MCG CAP PO SCH (09:00)
[2017-08-05] MEDS: ENOXAPARIN SODIUM 40 MG/0.4 ML SYRINGE SQ SCH (11:00)
[2017-08-05] MEDS: PRAZOSIN HCL 5 MG CAP PO SCH (20:18)
[2017-08-05] MEDS: ATORVASTATIN 80 MG TAB PO SCH (20:18)
[2017-08-06] VITALS (26 sets, daily range): BP systolic 111–187; BP diastolic 59–94; PULSE 69–97; RESP 18–19; TEMP 97.9–99.3; O2SAT 92–96
[2017-08-06] MEDS: HYDROmorphone HCL 2 MG TAB PO PRN ×2 (05:33→20:22)
[2017-08-06] MEDS: RESP: ALBUTEROL 2.5 MG/IPRATROPIUM 0.5 MG NEB (SCH) NEB ×3 (07:26→20:45)
--- NOTE | 2017-08-06 07:48 | PD.VS.PN ---
Subjective POD #: 2 Procedure(s): L carotid replacement Subjective/Hospital Course c/o sore neck but otherwise ok slight L lip droop; no dysphagia + void since Zee out Objective Vitals/I&O Date Time Temp Pulse Resp B/P (MAP) Pulse Ox O2 Delivery O2 Flow Rate FiO2 08/06/17 07:27 92 21 08/06/17 06:04 86 08/06/17 05:28 92 08/06/17 04:10 86 08/06/17 03:06 85 08/06/17 03:06 97.9 87 19 145/83 (103) 93 08/06/17 01:30 85 08/06/17 00:03 91 08/05/17 23:40 86 08/05/17 23:40 98.3 87 20 151/75 (100) 93 08/05/17 22:00 86 08/05/17 21:00 83 08/05/17 20:00 80 08/05/17 19:40 98.1 83 18 171/84 (113) 94 08/05/17 19:40 84 08/05/17 19:36 98 Nasal Cannula 3.00 08/05/17 15:00 98.4 75 18 155/73 (100) 93 08/05/17 15:00 75 08/05/17 11:00 75 08/05/17 11:00 98.6 16 16 138/81 (100) 99 Arterial Line 08/06/17 08/06/17 08/06/17 07:00 15:00 23:00 Intake Total 240 ml Output Total 420 ml Balance -180 ml Exam: L neck slightly edematous mild smile asymmetry 5/5 UE and LE strength, symmetric Assessment and Plan Plan POD#2 s/p L carotid replacement 1. Normalize 2. OOB TC 3. pain control Discharge Planning likely Tue or Tuesday Toni Siegel MD Aug 06, 2017 07:48
[2017-08-06] MEDS: ASPIRIN 325 MG TAB PO SCH (08:51)
[2017-08-06] MEDS: MULTIVITAMIN-OPHTHALMIC 1 TAB PO SCH ×2 (08:51→20:22)
[2017-08-06] MEDS: buPROPion HCL 100 MG TAB PO SCH (08:51)
[2017-08-06] MEDS: CYANOCOBALAMIN 1,000 MCG TAB PO SCH (08:51)
[2017-08-06] MEDS: CALCITRIOL 0.25 MCG CAP PO SCH (08:51)
[2017-08-06] MEDS: DOCUSATE SODIUM 50 MG/SENNA 8.6 MG TAB PO SCH ×2 (08:51→20:22)
[2017-08-06] MEDS: MORPHINE SULFATE 4 MG/ML INJ IV PUSH PRN (08:51)
[2017-08-06] MEDS: FAMOTIDINE 20 MG TAB PO SCH ×2 (08:51→20:22)
[2017-08-06] MEDS: VENLAFAXINE HCL XR 75 MG CAP PO SCH (08:53)
[2017-08-06] MEDS: ENOXAPARIN SODIUM 40 MG/0.4 ML SYRINGE SQ SCH (11:06)
[2017-08-06] MEDS: D5-1/2 NS + KCL 20 MEQ INJ 1,000 ML IV SCH (11:06)
[2017-08-06] MEDS: PRAZOSIN HCL 5 MG CAP PO SCH (20:22)
[2017-08-06] MEDS: ATORVASTATIN 80 MG TAB PO SCH (20:22)
[2017-08-07] VITALS (30 sets, daily range): BP systolic 140–179; BP diastolic 73–94; PULSE 78–103; RESP 16–18; TEMP 98–99.3; O2SAT 92–96
[2017-08-07] MEDS: D5-1/2 NS + KCL 20 MEQ INJ 1,000 ML IV SCH (02:15)
[2017-08-07] MEDS: HYDROmorphone HCL 2 MG TAB PO PRN (03:29)
[2017-08-07] MEDS: RESP: ALBUTEROL 2.5 MG/IPRATROPIUM 0.5 MG NEB (SCH) NEB ×3 (07:30→20:58)
--- NOTE | 2017-08-07 07:50 | PD.VS.PN ---
Subjective POD #: 3 Procedure(s): L carotid replacement Subjective/Hospital Course c/o sore neck but otherwise ok slight L lip droop; no dysphagia + void since Zee out anil diet but doesn't like food Objective Vitals/I&O Date Time Temp Pulse Resp B/P (MAP) Pulse Ox O2 Delivery O2 Flow Rate FiO2 08/07/17 07:35 91 08/07/17 07:35 98.6 94 18 152/73 (99) 92 08/07/17 07:35 92 Nasal Cannula 3.00 08/07/17 07:30 93 Nasal Cannula 4.00 08/07/17 06:01 89 08/07/17 05:11 95 08/07/17 04:08 90 08/07/17 03:25 98.0 91 18 152/80 (104) 93 08/07/17 03:25 93 Nasal Cannula 4.00 08/07/17 03:10 95 08/07/17 02:24 94 08/07/17 01:35 94 08/07/17 00:49 94 08/06/17 23:38 98.9 97 19 119/64 (82) 93 08/06/17 23:38 95 08/06/17 23:38 93 Simple Mask 4.00 08/06/17 22:03 95 08/06/17 21:22 17 08/06/17 21:21 94 08/06/17 20:53 95 Nasal Cannula 08/06/17 20:16 93 Nasal Cannula 2.00 08/06/17 20:16 86 08/06/17 20:16 99.2 69 18 179/94 (122) 93 08/06/17 20:15 85 08/06/17 19:25 87 08/06/17 18:04 88 08/06/17 17:13 87 08/06/17 16:02 84 08/06/17 15:10 85 08/06/17 15:10 96 Nasal Cannula 2.00 08/06/17 15:10 99.3 85 18 155/78 (103) 96 08/06/17 14:00 85 08/06/17 13:16 85 08/06/17 12:00 82 08/06/17 11:19 93 Nasal Cannula 2.00 08/06/17 11:16 87 08/06/17 11:16 99.1 91 18 111/59 (76) 93 08/06/17 10:02 92 08/06/17 09:04 96 08/06/17 08:05 96 08/06/17 07:54 88 08/06/17 07:54 99.1 85 18 187/88 (121) 95 08/07/17 08/07/17 08/07/17 07:00 15:00 23:00 Intake Total 240 ml Output Total 825 ml Balance -585 ml Exam: L neck swollen, edematous Slight facial droop no somatic focal neuro deficits Assessment and Plan Plan POD#3 s/p L carotid replacement 1. Normalize 2. OOB TC 3. HL IVF Discharge Planning likely Tuesday (POD#4) Toni Siegel MD Aug 07, 2017 07:50
[2017-08-07] MEDS: CYANOCOBALAMIN 1,000 MCG TAB PO SCH (08:07)
[2017-08-07] MEDS: CALCITRIOL 0.25 MCG CAP PO SCH (08:07)
[2017-08-07] MEDS: VENLAFAXINE HCL XR 75 MG CAP PO SCH (08:07)
[2017-08-07] MEDS: ASPIRIN 325 MG TAB PO SCH (08:07)
[2017-08-07] MEDS: buPROPion HCL 100 MG TAB PO SCH (08:07)
[2017-08-07] MEDS: DOCUSATE SODIUM 50 MG/SENNA 8.6 MG TAB PO SCH ×2 (08:07→21:31)
[2017-08-07] MEDS: FAMOTIDINE 20 MG TAB PO SCH ×2 (08:07→21:30)
[2017-08-07] MEDS: MULTIVITAMIN-OPHTHALMIC 1 TAB PO SCH ×2 (08:07→21:30)
[2017-08-07] MEDS: ENOXAPARIN SODIUM 40 MG/0.4 ML SYRINGE SQ SCH (11:44)
[2017-08-07] MEDS: PRAZOSIN HCL 5 MG CAP PO SCH (20:13)
[2017-08-07] MEDS: ATORVASTATIN 80 MG TAB PO SCH (21:31)
[2017-08-07] MEDS: LABETALOL HCL 100 MG/20 ML VIAL IV PRN (21:31)
[2017-08-08] VITALS (27 sets, daily range): BP systolic 122–168; BP diastolic 71–88; PULSE 64–87; RESP 16–18; TEMP 97.9–98.9; O2SAT 92–96
--- NOTE | 2017-08-08 06:36 | MP ---
cc: TONI SIEGEL MD DATE OF SURGERY 08/04/2017 PREOPERATIVE DIAGNOSIS Left carotid pseudoaneurysm. POSTOPERATIVE DIAGNOSIS Left carotid pseudoaneurysm. PROCEDURE Left common carotid artery to internal carotid artery bypass with 8-mm PTFE. ATTENDING SURGEON Toni Siegel MD ANESTHESIA General. INDICATION Mr. Zendejas is a 77-year-old gentleman who had a carotid endarterectomy sometime ago. He has a pulsatile neck mass and on CT scan it was very suggestive that he had a carotid pseudoaneurysm. He was taken to the operating room for repair. DESCRIPTION OF PROCEDURE Informed consent was obtained from the patient. He was taken to the operating room, placed supine on the operating room table. An appropriate time-out was taken to insure the patient's identity, operative site and planned procedure. 2 grams of Ancef were initiated prior to the skin incision and will be discontinued after a single preoperative dose. Everyone in the room agreed with the time-out and we proceeded. His left neck was prepped and draped and his previous incision was obtained with a 10-blade, carried down through the subcutaneous tissue with electrocautery. Then scar tissue was encountered but we were able to dissect free the proximal aspect of his incision and the common carotid artery and this was encircled with a vessel loop. We then dissected up, around the chronic-appearing pseudoaneurysm and identified the hypoglossal nerve and superior thyroid artery what appeared to be the external carotid artery. The internal carotid artery was diving deep and this was ultimately dissected free. Once the internal carotid artery was identified and dissected free, it was encircled with a vessel loop and the patient was systemically heparinized. Throughout the remainder of the case the ACT was kept greater than 250. In conjunction with our Anesthesia colleagues and under EEG monitoring, distal to proximal control of the common carotid artery were obtained with profunda clamps and the entire aneurysm was excised. An 8-mm PTFE was brought up on the field and sewn end-to-end distally to the internal carotid artery with running 5-0 Woodworth-Louis suture as well as end-to-end proximally to the common carotid artery with running 5-0 Woodworth-Louis suture. The clamps were released in conjunction with Anesthesia and hemostasis achieved with several repair sutures. The external carotid artery was surgically ligated with 4-0 Prolene suture. The entire area was infiltrated with Marcaine irrigated, made hemostatic, the heparin was reversed with protamine and the wound was then closed with a 2-0 Polysorb, 3-0 Polysorb and 4-0 Monocryl. The sponge and needle counts were correct at the end of the case. I was present and scrubbed for the entire procedure. At the end of the case the patient was awoken, transported to the ICU in stable condition and was moving all four of his extremities without difficulty. Toni Siegel MD RJF/SSB /7:10 PM /6:23 AM
[2017-08-08] MEDS: LABETALOL HCL 100 MG/20 ML VIAL IV PRN (07:40)
[2017-08-08] MEDS: RESP: ALBUTEROL 2.5 MG/IPRATROPIUM 0.5 MG NEB (SCH) NEB ×3 (07:56→19:32)
[2017-08-08] MEDS: DOCUSATE SODIUM 50 MG/SENNA 8.6 MG TAB PO SCH ×2 (09:00→21:19)
[2017-08-08] MEDS: CYANOCOBALAMIN 1,000 MCG TAB PO SCH (09:01)
[2017-08-08] MEDS: MULTIVITAMIN-OPHTHALMIC 1 TAB PO SCH ×2 (09:01→22:04)
[2017-08-08] MEDS: buPROPion HCL 100 MG TAB PO SCH (09:02)
[2017-08-08] MEDS: ASPIRIN 325 MG TAB PO SCH (09:02)
[2017-08-08] MEDS: FAMOTIDINE 20 MG TAB PO SCH ×2 (09:02→21:20)
[2017-08-08] MEDS: VENLAFAXINE HCL XR 75 MG CAP PO SCH (09:02)
[2017-08-08] MEDS: CALCITRIOL 0.25 MCG CAP PO SCH (09:03)
--- NOTE | 2017-08-08 09:18 | PD.VS.PN ---
Subjective POD #: 4 Procedure(s): L carotid replacement Subjective/Hospital Course Pt in bed this am Distal end of incision with erythema and small hematoma Pt c/o mild incisional pain, otherwise ok Pt with slight Left sided lip droop/no dysphagia + BM this am Objective Vitals/I&O Date Time Temp Pulse Resp B/P (MAP) Pulse Ox O2 Delivery O2 Flow Rate FiO2 08/08/17 08:00 85 08/08/17 08:00 98.9 79 18 167/88 (114) 95 08/08/17 08:00 95 Nasal Cannula 2.00 08/08/17 07:00 79 08/08/17 06:00 84 08/08/17 05:00 80 08/08/17 04:44 98.6 87 16 133/71 (91) 95 08/08/17 04:42 96 Nasal Cannula 3.00 08/08/17 04:00 80 08/08/17 03:00 79 08/08/17 02:00 80 08/08/17 01:00 84 08/08/17 00:51 98.6 87 16 95 08/08/17 00:00 83 08/07/17 23:26 95 Nasal Cannula 3.00 08/07/17 23:00 84 08/07/17 22:04 141/76 (97) 08/07/17 22:00 78 08/07/17 21:00 90 08/07/17 20:59 94 Nasal Cannula 3.00 08/07/17 20:18 93 Nasal Cannula 3.00 08/07/17 20:16 99.3 86 16 179/94 (122) 93 08/07/17 20:00 84 08/07/17 19:00 87 08/07/17 18:01 94 08/07/17 17:04 92 08/07/17 16:16 158/83 (108) 08/07/17 16:09 92 08/07/17 15:03 98.6 86 18 178/88 (118) 95 08/07/17 15:03 91 08/07/17 15:03 95 Nasal Cannula 3.00 08/07/17 14:00 88 08/07/17 13:04 84 08/07/17 12:00 91 08/07/17 11:19 98.4 84 18 140/74 (96) 96 08/07/17 11:19 96 Nasal Cannula 3.00 08/07/17 11:19 83 08/07/17 10:09 85 08/08/17 08/08/17 08/08/17 07:00 15:00 23:00 Intake Total 240 ml Balance 240 ml Exam: GENERAL: Alert in NAD, GCS 15 SKIN: Warm and dry Left neck incision intact with erythema/small hematoma at the distal end of the incision HEAD: Normocephalic. EYES: No scleral icterus. No injection or drainage. NECK: Supple, trachea midline. No JVD or lymphadenopathy. CARDIOVASCULAR: Regular rate and rhythm without murmurs, gallops, or rubs. RESPIRATORY: Breath sounds equal bilaterally. No accessory muscle use. MUSCULOSKELETAL: No cyanosis, or edema. Left sided facial droop present Assessment and Plan Plan POD#4 s/p L carotid replacement Small Hematoma noted at the distal end of the incision line Plan Ordered CBC/PT/INR D/c Lovenox continue with ASA for anticoagulation therapy Apply SCD PT/OOB/Ambulation Ana Bates NP [facility]/[employer] [phone] Discharge Planning d/c planning 1-2 days Ana Bates Aug 08, 2017 09:18
[2017-08-08] MEDS ORDERED: VANCOMYCIN HCL 1000 MG VIAL ONE (12:56)
[2017-08-08] MEDS ORDERED: PROTAMINE SULFATE 50 MG/5 ML VIAL ONE (13:11)
[2017-08-08] MEDS ORDERED: BUPIVACAINE HCL PF 0.5% 30 ML VIAL ONE (13:12)
[2017-08-08] MEDS ORDERED: HEPARIN SODIUM - IV 10,000 UNITS/10 ML VIAL ONE (13:12)
[2017-08-08] MEDS ORDERED: NEOSTIGMINE 5 MG/5 ML SYRINGE ONE (13:59)
[2017-08-08] MEDS ORDERED: GLYCOPYRROLATE 0.4 MG/2 ML VIAL ONE (14:05)
[2017-08-08] MEDS ORDERED: SUGAMMADEX SODIUM 200 MG/2 ML VIAL IV PUSH ONE (14:05)
--- NOTE | 2017-08-08 14:10 | HHI.PR ---
cc: Toni Siegel MD Immediate Post Op Note Procedure Date: Aug 08, 2017 Pre Op Diagnosis: L neck hematoma Post Op Diagnosis: L neck hematoma Surgeon: Toni Siegel Cigar Head Puncher(s): Teodora Gee Procedure: Evacuation of LEFT neck hematoma Findings: old blood, no active bleeding patent CCA-ICA bypass Complications: none Specimen(s) removed: none Estimated blood loss: 50mL new 300ml old Anesthesia: General Drains: None Fluids: 700mL IVF Patient to: PACU Patient Condition: Good Date/Time of Procedure: SEE SURGICAL CARE RECORD Toni Siegel MD Aug 08, 2017 14:10
[2017-08-08] MEDS ORDERED: DO NOT ADM ANY ANTICOAGULANT DRUGS PRN (14:17)
[2017-08-08] MEDS ORDERED: *LABETALOL HCL 100 MG/20 ML VIAL PERIprocedural Use ONLY ONE (14:46)
[2017-08-08] MEDS ORDERED: *ENALAPRILAT 1.25 MG/ML VIAL PERIprocedural Use ONLY ONE (15:03)
[2017-08-08] MEDS ORDERED: *morphine SULFATE 4 MG/ML PERIprocedure ONLY ONE (16:13)
[2017-08-08] MEDS: NICOTINE 21 MG/24 HR PATCH T-DERMAL SCH (16:56)
[2017-08-08 19:50] LABS: HEMATOCRIT 26.2 % (39.0-51.0); MEAN CELL VOLUME 91.9 FL (80.0-100.0); MEAN CORPUSCULAR HEMOGLOBIN 31.5 PG (27.0-34.0); MEAN CORPUSCULAR HGB CONC 34.3 % (32.0-36.0); MEAN PLATELET VOLUME 9.4 FL (7.0-11.0); PLATELET COUNT 231 TH/MM3 (150-450); RED BLOOD COUNT 2.86 MIL/MM3 (4.50-5.90); RED CELL DISTRIBUTION WIDTH 16.2 % (11.6-17.2); WHITE BLOOD COUNT 9.7 TH/MM3 (4.0-11.0)
[2017-08-08 20:10] LABS: INTERNATIONAL NORMALIZED RATIO 1.1 RATIO; PROTHROMBIN TIME - PATIENT 11.5 SEC (9.8-11.6)
[2017-08-08] MEDS: REMOVE OLD PATCH T-DERMAL SCH (21:00)
[2017-08-08] MEDS: ATORVASTATIN 80 MG TAB PO SCH (21:19)
[2017-08-08] MEDS: PRAZOSIN HCL 5 MG CAP PO SCH (21:20)
[2017-08-09] VITALS (31 sets, daily range): BP systolic 114–175; BP diastolic 62–89; PULSE 66–96; RESP 17–20; TEMP 97.9–98.8; O2SAT 91–98
[2017-08-09] MEDS: VENLAFAXINE HCL XR 75 MG CAP PO SCH (08:24)
[2017-08-09] MEDS: FAMOTIDINE 20 MG TAB PO SCH ×2 (08:24→20:46)
[2017-08-09] MEDS: NICOTINE 21 MG/24 HR PATCH T-DERMAL SCH (08:24)
[2017-08-09] MEDS: CYANOCOBALAMIN 1,000 MCG TAB PO SCH (08:24)
[2017-08-09] MEDS: ASPIRIN 325 MG TAB PO SCH (08:24)
[2017-08-09] MEDS: MULTIVITAMIN-OPHTHALMIC 1 TAB PO SCH ×2 (08:24→20:46)
[2017-08-09] MEDS: CALCITRIOL 0.25 MCG CAP PO SCH (08:24)
[2017-08-09] MEDS: buPROPion HCL 100 MG TAB PO SCH (08:25)
[2017-08-09] MEDS: LABETALOL HCL 100 MG/20 ML VIAL IV PRN ×2 (08:27→16:10)
[2017-08-09] MEDS: DOCUSATE SODIUM 50 MG/SENNA 8.6 MG TAB PO SCH ×2 (08:28→20:46)
[2017-08-09 08:47] LABS: AUTOMATED NEUTROPHIL # 7.3 TH/MM3 (1.8-7.7); BASOPHIL # 0.1 TH/MM3 (0-0.2); BASOPHIL % 0.6 % (0.0-2.0); EOSINOPHIL # 0.6 TH/MM3 (0-0.4); HEMATOCRIT 26.7 % (39.0-51.0); HEMOGLOBIN 8.9 GM/DL (13.0-17.0); LYMPH % 5.7 % (9.0-44.0); LYMPHOCYTE # 0.5 TH/MM3 (1.0-4.8); MEAN CELL VOLUME 91.9 FL (80.0-100.0); MEAN CORPUSCULAR HEMOGLOBIN 30.5 PG (27.0-34.0); MEAN CORPUSCULAR HGB CONC 33.2 % (32.0-36.0); MEAN PLATELET VOLUME 8.9 FL (7.0-11.0); MONO % 9.6 % (0.0-8.0); MONOCYTE # 0.9 TH/MM3 (0-0.9); NEUT % 78.1 % (16.0-70.0); PLATELET COUNT 234 TH/MM3 (150-450); RED BLOOD COUNT 2.91 MIL/MM3 (4.50-5.90); RED CELL DISTRIBUTION WIDTH 16.6 % (11.6-17.2); WHITE BLOOD COUNT 9.3 TH/MM3 (4.0-11.0)
--- NOTE | 2017-08-09 09:17 | PD.VS.PN ---
Subjective POD #: 5 Procedure(s): L carotid replacement Evacuation of LEFT neck hematoma Subjective/Hospital Course Pt S/P Evacuation of LEFT neck hematoma POD 1 Pt S/P Left Carotid Replacement POD 5 Pt sitting in chair this am, Alert in NAD Pain controlled Distal end of incision with erythema and small hematoma Pt c/o mild incisional pain, otherwise ok Pt with slight Left sided lip droop/no dysphagia Speech improved Objective Vitals/I&O Date Time Temp Pulse Resp B/P (MAP) Pulse Ox O2 Delivery O2 Flow Rate FiO2 08/09/17 08:02 94 Nasal Cannula 4.00 08/09/17 07:45 Nasal Cannula 4.00 08/09/17 07:45 98.1 77 18 173/89 (117) 94 08/09/17 07:00 77 08/09/17 06:11 78 08/09/17 05:51 74 08/09/17 04:08 80 08/09/17 03:54 98.0 75 19 137/71 (93) 91 08/09/17 03:54 91 Nasal Cannula 4.00 Simple Mask 08/09/17 03:10 74 08/09/17 02:24 75 08/09/17 01:06 75 08/09/17 00:37 76 08/08/17 23:45 92 Nasal Cannula 3.00 08/08/17 23:45 98.5 75 16 122/76 (91) 92 08/08/17 23:35 75 08/08/17 22:00 70 08/08/17 21:30 68 08/08/17 20:10 66 08/08/17 19:30 93 Nasal Cannula 3.00 08/08/17 19:21 64 08/08/17 19:21 98.1 70 17 154/79 (104) 96 Arterial Line 08/08/17 19:21 96 Nasal Cannula 3.00 08/08/17 18:00 82 08/08/17 17:00 97.9 78 16 168/77 (107) 95 08/08/17 17:00 78 08/08/17 17:00 96 Nasal Cannula 2.00 08/08/17 16:00 82 08/08/17 15:45 97.6 63 19 163/87 (112) 96 Nasal Cannula 4 08/08/17 15:30 61 18 157/82 (107) 93 Nasal Cannula 4 174/68 (103) 08/08/17 15:15 60 16 160/81 (107) 93 Nasal Cannula 4 175/66 (102) 08/08/17 15:10 60 16 165/86 (112) 92 Nasal Cannula 4 178/69 (105) 08/08/17 15:05 60 18 161/82 (108) 93 Nasal Cannula 4 177/82 (113) 08/08/17 15:00 60 16 163/81 (108) 93 Nasal Cannula 4 178/66 (103) 08/08/17 14:55 65 15 164/87 (112) 90 Nasal Cannula 4 184/67 (106) 08/08/17 14:45 71 22 158/85 (109) 93 Nasal Cannula 4 188/69 (108) 08/08/17 14:30 69 13 152/82 (105) 91 Nasal Cannula 4 176/70 (105) 08/08/17 14:24 98.8 67 15 140/75 (96) 87 Nasal Cannula 4 08/08/17 14:00 84 08/08/17 13:00 82 08/08/17 12:00 78 08/08/17 12:00 98.6 82 16 142/78 (99) 95 08/08/17 11:26 96 Nasal Cannula 2.00 08/08/17 11:00 74 08/08/17 10:00 84 08/09/17 08/09/17 08/09/17 07:00 15:00 23:00 Intake Total 360 ml Balance 360 ml Exam: GENERAL: Alert in NAD, GCS 15 SKIN: Warm and dry Left neck incision intact with erythema/small hematoma at the distal end of the incision HEAD: Normocephalic. EYES: No scleral icterus. No injection or drainage. NECK: Supple, trachea midline. No JVD or lymphadenopathy. CARDIOVASCULAR: Regular rate and rhythm without murmurs, gallops, or rubs. RESPIRATORY: Breath sounds equal bilaterally. No accessory muscle use. MUSCULOSKELETAL: No cyanosis, or edema. Left sided facial droop present Palpable R/L radial pulses present Laboratory Laboratory Tests Test 08/08/17 18:35 08/09/17 08:19 White Blood Count 9.7 9.3 Red Blood Count 2.86 2.91 Hemoglobin 9.0 8.9 Hematocrit 26.2 26.7 Mean Corpuscular Volume 91.9 91.9 Mean Corpuscular Hemoglobin 31.5 30.5 Mean Corpuscular Hemoglobin Concent 34.3 33.2 Red Cell Distribution Width 16.2 16.6 Platelet Count 231 234 Mean Platelet Volume 9.4 8.9 Prothrombin Time 11.5 Prothromb Time International Ratio 1.1 Neutrophils (%) (Auto) 78.1 Lymphocytes (%) (Auto) 5.7 Monocytes (%) (Auto) 9.6 Eosinophils (%) (Auto) 6.0 Basophils (%) (Auto) 0.6 Neutrophils # (Auto) 7.3 Lymphocytes # (Auto) 0.5 Monocytes # (Auto) 0.9 Eosinophils # (Auto) 0.6 Basophils # (Auto) 0.1 CBC Comment DIFF FINAL Differential Comment Assessment and Plan Plan POD# 5 s/p L carotid replacement Small Hematoma noted at the distal end of the incision line - Pt POD 1 Evacuation of LEFT neck hematoma Pt c/o mild incisional pain, otherwise ok Pt with slight Left sided lip droop/no dysphagia Speech improved Plan Continue pain control PT/OOB/Ambulation Ana Bates NP [facility]/[employer] [phone] Discharge Planning d/c planning 1-2 days Ana Bates Aug 09, 2017 09:17
[2017-08-09] MEDS: PRAZOSIN HCL 5 MG CAP PO SCH (20:46)
[2017-08-09] MEDS: ATORVASTATIN 80 MG TAB PO SCH (20:46)
[2017-08-09] MEDS: REMOVE OLD PATCH T-DERMAL SCH (20:49)
--- NOTE | 2017-08-09 22:06 | MP ---
cc: BRYON SIEGEL DATE OF SURGERY 08/08/17 PREOPERATIVE DIAGNOSIS Left neck hematoma status post carotid interposition graft. POSTOPERATIVE DIAGNOSIS Left neck hematoma status post carotid interposition graft. PROCEDURE Incision and drainage of left neck hematoma. SHEY Siegel MD CARE PROGRAM DIRECTOR SURGEON Dulce Piper ANESTHESIA General INDICATION Mr. Zendejas is a 77-year-old gentleman who has had a carotid pseudoaneurysm repair five days ago. He has developed neck swelling and is taken to the operating room urgently for neck exploration. PROCEDURE IN DETAIL Informed consent was obtained from the patient and he was taken to the operating room and placed supine on the operating table. Appropriate time-out was taken to ensure the patient identity, the operative site and planned procedure. One gram of vancomycin was initiated prior to skin incision and will be discontinued after a single preoperative dose. Vancomycin was chosen because of the patient's preoperative length of stay being greater than 48 hours. Everyone in the room agreed with time-out and we proceeded. His left neck was prepped and draped and his previous incision was opened with a 10 Rajinder, carried down to subcutaneous tissue with Metzenbaum scissors. Old hematoma was encountered. The graft was easily identified and noted to be widely patent. There was a nice palpable pulse in the graft. There was no active bleeding from anywhere and the entire wound was irrigated. The hematoma was evacuated. The wound was then closed with 2-0 Polysorb, 3-0 Polysorb and 4-0 Monocryl. The sponge, needle counts were correct at the end of the case. I was present and scrubbed and performed the entire procedure. MD LEX Luciano/ /7:08 PM /9:41 PM NIKKO
[2017-08-10] VITALS (9 sets, daily range): BP systolic 145–162; BP diastolic 83–91; PULSE 77–87; RESP 18–20; TEMP 97.9–98.2; O2SAT 92–94
--- NOTE | 2017-08-10 07:25 | PD.VS.PN ---
Subjective POD #: 6 Procedure(s): L carotid replacement Evacuation of LEFT neck hematoma (POD#2) Subjective/Hospital Course Pt S/P Evacuation of LEFT neck hematoma POD 2 Pt S/P Left Carotid Replacement POD 6 looks good neck ok swallowing ok pain controlled Objective Vitals/I&O Date Time Temp Pulse Resp B/P (MAP) Pulse Ox O2 Delivery O2 Flow Rate FiO2 08/10/17 06:08 77 08/10/17 05:16 79 08/10/17 04:11 81 08/10/17 03:50 80 08/10/17 03:50 97.9 87 20 145/83 (103) 92 08/10/17 03:50 Nasal Cannula 2.00 08/10/17 02:05 80 08/10/17 01:38 80 08/10/17 00:00 78 08/09/17 23:20 97.9 92 19 135/68 (90) 92 08/09/17 23:20 Nasal Cannula 2.00 08/09/17 23:00 75 08/09/17 22:00 96 08/09/17 21:00 80 08/09/17 20:05 96 Nasal Cannula 2.00 08/09/17 20:00 78 08/09/17 19:50 Nasal Cannula 2.00 08/09/17 19:50 98.8 90 20 166/81 (109) 92 08/09/17 19:50 82 08/09/17 18:00 76 08/09/17 17:00 72 08/09/17 16:15 71 17 151/78 (102) 98 08/09/17 16:00 76 08/09/17 16:00 98.1 77 17 175/88 (117) 98 08/09/17 16:00 Nasal Cannula 2.00 08/09/17 15:00 78 08/09/17 14:00 78 08/09/17 13:00 70 08/09/17 12:00 70 08/09/17 11:58 98.2 71 17 114/62 (79) 96 08/09/17 11:58 96 Nasal Cannula 3.00 08/09/17 11:00 69 08/09/17 10:18 77 08/09/17 09:00 66 08/09/17 08:02 94 Nasal Cannula 4.00 08/09/17 08:00 78 08/09/17 07:45 Nasal Cannula 4.00 08/09/17 07:45 98.1 77 18 173/89 (117) 94 08/10/17 08/10/17 08/10/17 07:00 15:00 23:00 Intake Total 480 ml Output Total 175 ml Balance 305 ml Exam: L neck edematous incision ok Laboratory Laboratory Tests Test 08/09/17 08:19 White Blood Count 9.3 Red Blood Count 2.91 Hemoglobin 8.9 Hematocrit 26.7 Mean Corpuscular Volume 91.9 Mean Corpuscular Hemoglobin 30.5 Mean Corpuscular Hemoglobin Concent 33.2 Red Cell Distribution Width 16.6 Platelet Count 234 Mean Platelet Volume 8.9 Neutrophils (%) (Auto) 78.1 Lymphocytes (%) (Auto) 5.7 Monocytes (%) (Auto) 9.6 Eosinophils (%) (Auto) 6.0 Basophils (%) (Auto) 0.6 Neutrophils # (Auto) 7.3 Lymphocytes # (Auto) 0.5 Monocytes # (Auto) 0.9 Eosinophils # (Auto) 0.6 Basophils # (Auto) 0.1 CBC Comment DIFF FINAL Differential Comment Assessment and Plan Plan POD# 6 s/p L carotid replacement Small Hematoma noted at the distal end of the incision line softer and superficial neuro intact neck otherwise ok Ready for discharge Discharge Planning Today Toni Siegel MD Aug 10, 2017 07:25
--- NOTE | 2017-08-10 07:28 | PD.VS.DC ---
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 Presented with asymptomatic 4 cm carotid pseudoaneurysm Procedure(s): L carotid replacement (08/04/17) Evacuation of LEFT neck hematoma (08/08/17) Significant Findings Laboratory Tests Test 08/08/17 18:35 08/09/17 08:19 Red Blood Count 2.86 MIL/MM3 (4.50-5.90) 2.91 MIL/MM3 (4.50-5.90) Hemoglobin 9.0 GM/DL (13.0-17.0) 8.9 GM/DL (13.0-17.0) Hematocrit 26.2 % (39.0-51.0) 26.7 % (39.0-51.0) Neutrophils (%) (Auto) 78.1 % (16.0-70.0) Lymphocytes (%) (Auto) 5.7 % (9.0-44.0) Monocytes (%) (Auto) 9.6 % (0.0-8.0) Eosinophils (%) (Auto) 6.0 % (0.0-4.0) Lymphocytes # (Auto) 0.5 TH/MM3 (1.0-4.8) Eosinophils # (Auto) 0.6 TH/MM3 (0-0.4) Hospital Course: The patient underwent excision of LEFT carotid pseudoaneurysm and interposition (CCA to ICA) with 8mm PTFE. Did well postoperative but on POD#4 developed worsening neck swelling. Taken to OR and found to have old hematoma with no anastomotic bleeding. POD#6 was anil po, ambulating, and ready for discharge. Discharge Condition: Good Discharge Disposition: Discharge Home Any questions or concerns: Call [facility] [phone] Toni Siegel MD Aug 10, 2017 07:28
[2017-08-10] MEDS: DOCUSATE SODIUM 50 MG/SENNA 8.6 MG TAB PO SCH (09:00)
[2017-08-10] MEDS: NICOTINE 21 MG/24 HR PATCH T-DERMAL SCH (09:00)
[2017-08-10] MEDS: CYANOCOBALAMIN 1,000 MCG TAB PO SCH (09:02)
[2017-08-10] MEDS: VENLAFAXINE HCL XR 75 MG CAP PO SCH (09:02)
[2017-08-10] MEDS: MULTIVITAMIN-OPHTHALMIC 1 TAB PO SCH (09:03)
[2017-08-10] MEDS: FAMOTIDINE 20 MG TAB PO SCH (09:03)
[2017-08-10] MEDS: CALCITRIOL 0.25 MCG CAP PO SCH (09:03)
[2017-08-10] MEDS: buPROPion HCL 100 MG TAB PO SCH (09:03)
[2017-08-10] MEDS: ASPIRIN 325 MG TAB PO SCH (09:03)
[2017-08-10] MEDS ORDERED: PILL SPLITTER OTHER PRN (11:45)
[2017-08-10] MEDS ORDERED: FAMOTIDINE 20 MG TAB PO SCH (21:00)
== END 2017-08-10 12:30 | disposition home or self-care (01) | DRG 253 ==
LOC: HSDI 05:47 → HCVI 11:55 → HCPC 08-05 13:00
PROVIDERS: ADMIT Surgery; ATTEND Surgery
PROC: 03R Upper Arteries, Replacement (ICD-10-PCS; principal; 2017-08-04 07:50)
PROC: 0JC50ZZ Extirpation of Matter from Left Neck Subcutaneous Tissue and Fascia, Open Approach (ICD-10-PCS; 2017-08-08)
DX: I72.0 Aneurysm of carotid artery (principal); I97.638 Postprocedural hematoma of a circulatory system organ or structure following other circulatory system procedure; Z99.81 Dependence on supplemental oxygen; J44.9 Chronic obstructive pulmonary disease, unspecified; I12.9 Hypertensive chronic kidney disease with stage 1 through stage 4 chronic kidney disease, or unspecified chronic kidney disease; E78.5 Hyperlipidemia, unspecified; F17.210 Nicotine dependence, cigarettes, uncomplicated; R29.810 Facial weakness; N18.9 Chronic kidney disease, unspecified; F41.8 Other specified anxiety disorders; Y83.8 Other surgical procedures as the cause of abnormal reaction of the patient, or of later complication, without mention of misadventure at the time of the procedure; Z88.1 Allergy status to other antibiotic agents
CPT/HCPCS: 36430; 80048; 80053; 85025; 85027; 85610; 86850; 86900; 86901; 86920; 93005; 94640; 94664; C1757; J0131; J0690; J1644; J1650; J2270; J2370; J2405; J2710; J2720; J3010; J3370; J3480; J7040; J7050; J7120; J7613; P9016